=== PATIENT | female | born 1985 | race Caucasian/White ===

== ENCOUNTER 2024-07-10 20:44 | Emergency (ER) | payer BC, SELFPAY ==
[2024-07-10 20:55] VITALS: BP 130/70; PULSE 106; RESP 16; TEMP 36.7; O2SAT 98; BMI 21.3
--- NOTE | 2024-07-10 21:31 | ED_ITS ---
Discharge Plan Disposition Patient Disposition: Home, Self-Care Prescriptions Prescriptions: New hydrocortisone 1 % cream 1 applic topical BID PRN (Reason: contact dermatitis) Qty: 28.4 0RF permethrin 5 % cream 1 applic topical ONCE Qty: 60 0RF Rx Instructions: Apply over all affected areas and leave on for 8 hours as you did your previous time with scabies. Referrals Follow up/Referrals: Provider,Referral, MD [Primary Care Provider] - See instructions Activity Restrictions/Add. Instructions Additional Instructions/Restrictions: At this time it was felt you are safe to be discharged home. If new or worsening symptoms please do not hesitate to return the emergency department. Please wash all your linens and close in hot water. Please apply your medications as prescribed. If symptoms are not resolving within 5 days follow- up with Dr. Camarena as discussed. Clinical Impressions Clinical Impression: Scabies, Contact dermatitis Instructions Patient Instructions: Contact Dermatitis, DI for Scabies Print Language Print Language: Uzbek Discharge ED Provider: Lincoln Weiss General Adult HPI General Chief complaint: Skin/Abscess/Foreign Body Stated complaint: Blisters on hands and arms Time Seen by Provider: 07/10/24 21:00 Mode of Arrival: Family Vehicle Source of Information: Patient Limitations: No Limitations Description of Symptoms (Recalled from ER Triage Doc. by RN): 39 yo presents with a blister-like rash in various areas on her upper extremeties. her lue has a straightline of same lesions. afebrile. vss. emv 15 History of Present Illness HPI narrative: Patient is a 39-year-old female who presents emergency department for evaluation of a rash. Patient cleans houses with multiple abrasive chemicals, has also had scabies before, has also slept in a dirty motel room in the last week and new contacts include a new dog. No new lotions or foods. She has developed a rash scattered over her upper extremities concentrated at the wrist and interdigital spaces of the upper extremities. No mucosal involvement. No other acute complaints at this time. Related Data Previous Rx's ?Medication ?Instructions ?Recorded hydrocortisone 1 % topical cream 1 applic topical BID PRN contact 07/10/24 dermatitis #28.4 grams permethrin 5 % topical cream 1 applic topical ONCE scabies 1 07/10/24 dose #60 grams Allergies Allergy/AdvReac Type Severity Reaction Status Date / Time No Known Allergies Allergy Verified 07/10/24 21:32 [facility] Disclaimer: The information contained in this section may have been updated after the patient was seen, as this information can be updated by other users. Social History Smoking Status: Unknown if ever smoked alcohol intake: never current occupational status: other Travel in the last 8 weeks: None ROS Obtained: Yes Systems reviewed as appropriate & no additional complaints except as documented Physical Exam General General appearance: alert and in no apparent distress Head Head exam: atraumatic and normocephalic Eye Eye exam: Present PERRL ENT ENT exam: Present mucous membranes moist Neck Neck exam: Present normal inspection Chest Chest inspection: Present normal inspection and symmetric chest wall rise Respiratory Respiratory exam: Absent respiratory distress Cardiovascular Cardiovascular exam: Present regular rate and normal rhythm Abdominal Exam Abdominal exam: Present soft Extremities Exam Extremities exam: Present other (Scattered areas of dry skin and nodular v esicular rash over the bilateral hands concentrated in the interdigital spaces and fingertips. Vesicles over the wrists. Linear vesicle line over the left upper arm.) Neurological Exam Neurological exam: Present alert Psychiatric Psychiatric exam: Present normal affect Skin Skin exam: Present warm and dry Medical Decision Making Glenn Inquiry Pt receiving controlled substance: No Vital Signs: 07/10/24 20:55 Temperature 98.1 F Temperature Source Oral Pulse Rate [Right Brachial] 106 H Respiratory Rate 16 Blood Pressure [Right Arm] 130/70 Blood Pressure Mean [Right Arm] 90 Blood Pressure Source [Right Arm] Automatic Cuff Blood Pressure Position [Right Arm] Sitting 02 Sat by Pulse Oximetry 98 Oxygen Delivery Method Room Air Medical Decision Narrative: In summary patient is a 39-year-old female past medical history described above who presents emergency department for evaluation of rash. Patient is hemodynamically stable nontoxic-appearing upon arrival, afebrile. Based on history and physical exam is difficult to delineate whether this is contact dermatitis versus scabies. Patient has multiple exposures including chemicals, dirty motel room, new dog. The rash is also consistent with scabies versus contact dermatitis given its linear quality however its predilection for the interdigital spaces makes scabies more likely. Patient will be discharged with a course of permethrin and topical steroids and was given return precautions and will follow-up with Dr. Camarena on an outpatient basis. Critical Care Critical Care Time Critical Care Time: No
[2024-07-10 21:47] VITALS: BP 128/76; PULSE 98; RESP 18; TEMP 36.7; O2SAT 98
== END 2024-07-10 21:49 | disposition home or self-care (01) ==
PROVIDERS: Emergency Provider Emergency Medicine
DX: B86 Scabies (principal); L25.9 Unspecified contact dermatitis, unspecified cause
CPT/HCPCS: 99283